=== PATIENT | male | born 1980 | race Caucasian/White ===

== ENCOUNTER 2017-09-06 15:37 | Emergency (ER) | payer OTHER ==
[2017-09-06 15:57] VITALS: BP 125/78
[2017-09-06] MEDS ORDERED: Tetracaine 0.5% OPTH.SOL 4 ML* 1 DROP BTL RIGHT EYE ONE (16:29)
[2017-09-06] MEDS ORDERED: Fluorescein Sodium TOPICAL* 1 MG TEST OPHTHALMIC ONE (16:30)
[2017-09-06] MEDS ORDERED: Fluorescein Sodium TOPICAL* 1 MG TEST ONE (16:48)
[2017-09-06] MEDS ORDERED: Tetracaine 0.5% OPTH.SOL 4 ML* 1 DROP BTL ONE (16:48)
[2017-09-06] MEDS ORDERED: BSS OPTH.SOL* BTL ONE (16:48)
--- NOTE | 2017-09-06 17:03 | UC ---
Eye Complaint HPI - HPI Summary HPI Summary: Patient presents s/p traumatic injury of the right eye that occurred today while at work. A brachd came up under his glasses and pocked him in the side of the right eye. He states he experienced immediate pain, which has since improved. He denies any significant visual changes, and admits to some tearing. He comes for evaluation as it is required. - History of Current Complaint Chief Complaint: UCEye Stated Complaint: EYE COMPLAINT Time Seen by Provider: 09/06/17 16:27 Hx Obtained From: Patient Onset/Duration: Sudden Onset, Lasting Hours Timing: Constant Severity Initially: Moderate Severity Currently: Moderate Location of Injury: Other - lateral cornea Character: Sharp Aggravating Factor(s): Blinking Alleviating Factor(s): Other - imporved somtaneouly Associated Signs And Symptoms: Positive: Negative - Risk Factors Penetrating Injury Risk Factor: Negative Acute Glaucoma Risk Factors: Eye Trauma Optic Artery Occlusion Risk Factors: Negative - Allergies/Home Medications Allergies/Adverse Reactions: Allergies Allergy/AdvReac Type Severity Reaction Status Date / Time Codeine Allergy Unknown Unknown Verified 09/06/17 15:57 Reaction Details Hydrocodone AdvReac Intermediate Nausea Verified 09/06/17 15:57 PMH/Surg Hx/FS Hx/Imm Hx Previously Healthy: Yes - Surgical History Surgical History: None - Family History Known Family History: Positive: None - Social History Occupation: Employed Full-time Lives: Alone Alcohol Use: Occasionally Substance Use Type: None Smoking Status (MU): Never Smoked Tobacco - Immunization History Most Recent Influenza Vaccination: unknown Most Recent Tetanus Shot: 06/14/15 Most Recent Pneumonia Vaccination: unknown Review of Systems Constitutional: Negative Skin: Negative Eyes: Other - right eye trauma ENT: Negative Respiratory: Negative Cardiovascular: Negative Gastrointestinal: Negative Genitourinary: Negative Motor: Negative Neurovascular: Negative Musculoskeletal: Negative Neurological: Negative Psychological: Negative All Other Systems Reviewed And Are Negative: Yes Physical Exam Triage Information Reviewed: Yes Appearance: Well-Appearing Vital Signs: Initial Vital Signs Temp 98.4 F 09/06/17 15:53 Pulse 77 09/06/17 15:53 Resp 18 09/06/17 15:53 BP 125/78 09/06/17 15:53 Pulse Ox 100 09/06/17 15:53 Vital Signs Reviewed: Yes Eyes: Positive: Other: - right eye, inspection, lateral conjunctive mildly erythemic, sclera with injection. eomintact. visual acuity unchaged. no globe fracture or smudge of iris. no foreign body noted, patient could not sence any foreign body in eye. ENT Exam: Normal Dental Exam: Normal Neck exam: Normal Neck: Positive: 1 Respiratory Exam: Normal Cardiovascular Exam: Normal Abdominal Exam: Normal Neurological Exam: Normal Skin Exam: Normal Eye Complaint Course/Dx - Course Course Of Treatment: Patient presents s/p trauma to the right eye from branch of tree. The visual acuity was checked and was unchanged. The eye was inspected with no obvious globe fracture. Fluroseine exam revealed corneal abrasion. Erythrmycin opth ointment was RX, Dr. Roa's office was contacted and they can see the patient Saturday, patient needs to call Saturday and make an appointment, if his symtpoms get worse he was told to go to the emergency department immediatly. - Differential Dx/Diagnosis Differential Diagnosis/HQI/PQRI: Corneal Abrasion Provider Diagnoses: corneal abrasion Discharge - Discharge Plan Condition: Stable Disposition: HOME Prescriptions: Erythromycin OPTH OINT* [Erythromycin 0.5% OPTH OINT*] 1 applic RIGHT EYE TID # 1 ophth.oint Patient Education Materials: Corneal Abrasion (ED) Referrals: Bubba DALEY,Tom Jhaveri [Primary Care Provider] - Additional Instructions: Dr. Roa will see you Saturday, call the office to make an appointment. If you have increased pain, blurred vision please to directly to the emergency department.
== END 2017-09-06 17:22 | disposition home or self-care (01) ==
LOC: UCEAST 15:37
DX: S05.01XA Injury of conjunctiva and corneal abrasion without foreign body, right eye, initial encounter (principal); W22.8XXA Striking against or struck by other objects, initial encounter; Y92.9 Unspecified place or not applicable
CPT/HCPCS: 99201; A9270-GY; G0463